=== PATIENT | male | born 1940 | race Caucasian/White ===

== ENCOUNTER → 2017-02-17 | Outpatient (CLI) | payer MEDICARE, BC ==
[~2017-02-17] MED LIST: ACETAMINOPHEN PO; BENICAR HCT 40-1 TAB PO; CELEBREX PO; DARVOCET-N 1001 TAB PO; DOCUSATE SODIU100 MG PO; IBUPROFEN PO; KEFLEX250 M1 PO; LOPID600 MG PO; LOSARTAN POTASS50 MG PO; NORCO 7.5-3251 EACH PO; TOPROL XL PO
[2017-02-17 13:53] LABS: ALBUMIN SERUM 4.4 g/dL (3.5-5.0); BILIRUBIN,TOTAL 0.9 mg/dL (0.2-2.0); BUN/CREATININE RATIO 17.33; CALCIUM SERUM 9.6 mg/dL (8.4-10.2); CREATININE SERUM 1.5 mg/dL (0.6-1.4); GLOM FILT RATE Estimated 44.3 mL/min (>60); PHOSPHOROUS 3.5 mg/dL (2.5-4.6); POTASSIUM 3.9 mmol/L (3.5-5.1); PROTEIN TOTAL SERUM 7.8 g/dL (6.0-8.3); URIC ACID 6.4 mg/dL (2.6-7.2)
[2017-02-20 12:16] LABS: CALCIUM (PTHINTACT) 10.3 mg/dL (8.6-10.3)
== END | disposition home or self-care (01) ==
LOC: SLABONLY 12:50
PROVIDERS: Internal Medicine Nephrology
DX: N18.3 Chronic kidney disease, stage 3 (moderate) (principal); N25.81 Secondary hyperparathyroidism of renal origin
CPT/HCPCS: 36415; 80053; 82310; 83970; 84100; 84550